=== PATIENT | female | born 1960 | race Caucasian/White ===

== ENCOUNTER 2023-03-03 20:06 | Emergency (ER) | payer MEDICARE, SELFPAY ==
[2023-03-03 21:00] VITALS: BP 160/84; PULSE 83; RESP 18; TEMP 37; O2SAT 100; BMI 25.4
--- NOTE | 2023-03-03 22:35 | ED_ITS ---
HPI - Ear Problem General Chief complaint: Ear Problems Stated complaint: Pain in right ear/clogged Time Seen by Provider: 03/03/23 21:55 Source: patient Mode of arrival: ambulatory Limitations: no limitations History of Present Illness HPI Narrative: Patient been having difficulty hearing from the right ear for last 1 week Related Data Allergies Allergy/AdvReac Type Severity Reaction Status Date / Time No Known Allergies Allergy Verified 03/03/23 22:09 Review of Systems Review of Systems: Yes all other systems are reviewed and are negative [facility] Social History Social History Advance Directives: No Advance Directives Information Provided: No Physical Exam Vital Signs: Vital Signs: Last Vital Signs Temp 98.6 F 03/03/23 21:00 Pulse 83 03/03/23 21:00 Resp 18 03/03/23 21:00 BP 160/84 H 03/03/23 21:00 Pulse Ox 100 03/03/23 21:00 O2 Del Method Room Air 03/03/23 21:00 BMI result Body Mass Index 25.4 HEENT: Ears: external ears normal, Abnormal EAC present (Right) cerumen impaction and hearing grossly impaired General nose exam: Normal external nose present Face and sinus: Yes normal facial exam Mouth: Normal oral and palatal mucosa present Teeth and gingiva: dentition normal Throat: Yes posterior oropharynx normal Procedures Ear Wax Removal Right Ear: Cerumenolytic Used: other (Water jet) Results: Re-examined: cerumen removed completely TM Examination: TM(s) intact, normal appearance Ear Canal Exam: atraumatic Patient Tolerated Procedure: well Complications: no problems Technique: ear canal irrigated Discharge Plan Discharge Clinical Impression: Impacted ear wax Patient Disposition: Home, Self-Care Additional Instructions: You had wax in the right ear which was removed Care as advised
== END 2023-03-03 23:12 | disposition home or self-care (01) ==
PROVIDERS: Emergency Provider Internal Medicine
DX: H61.21 Impacted cerumen, right ear (principal); H92.01 Otalgia, right ear
CPT/HCPCS: 69209; 99282